=== PATIENT | male | born 1970 | race Caucasian/White ===

== ENCOUNTER 2021-08-10 05:35 | Day surgery (SDC) | payer BC, SELFPAY ==
[~2021-08-10] VITALS: Ht 185.4 cm; Wt 108.9 kg
[2021-08-10] MEDS ORDERED: CEFAZOLIN SOD 1 GM in D5W 50 ML IV ONE (07:00)
[2021-08-10] MEDS ORDERED: ONDANSETRON HCL 4 MG/2 ML VIAL IVP ONE (08:00)
[2021-08-10] MEDS ORDERED: LR 1,000 ML IV.SOLN IV ONE (08:00)
[2021-08-10] MEDS ORDERED: NS IRRIG SOLN 1000 ML IR ONE (08:00)
[2021-08-10] MEDS ORDERED: BUPIVACAINE /PF 0.25% 30 ML VIAL INJ ONE (08:00)
[2021-08-10] MEDS ORDERED: VECURONIUM BROMIDE 10 MG/VIAL (NORCURON) IV ONE (08:00)
[2021-08-10] MEDS ORDERED: ROCURONIUM BROMIDE 10 MG/ML (ZEMURON) IV ONE (08:00)
[2021-08-10] MEDS ORDERED: SUCCINYLCHOLINE CHLORIDE 20 MG/ML(QUELICIN) IVP ONE (08:00)
[2021-08-10] MEDS ORDERED: NS 1000 ML IV.SOLN IV ONE (08:00)
[2021-08-10] MEDS ORDERED: PROPOFOL 200MG/ 20ML VIAL (DIPRIVAN) IV ONE (08:00)
[2021-08-10] MEDS ORDERED: SEVOFLURANE 15 MIN GAS INH ONE (08:00)
[2021-08-10] MEDS ORDERED: MIDAZOLAM HCL 5 MG/5 ML VIAL IVP ONE (08:00)
[2021-08-10] MEDS ORDERED: CEFAZOLIN 2 GM IVPB PREMIX 50 ML IV ONE (08:00)
[2021-08-10] MEDS ORDERED: fentaNYL CITRATE 250 MCG/5 ML AMP IV ONE (08:00)
[2021-08-10] MEDS ORDERED: KETOROLAC TROMETHAMINE 30 MG VIAL IVP PRN (08:45)
[2021-08-10] MEDS ORDERED: ONDANSETRON HCL 4 MG/2 ML VIAL IVP PRN (08:45)
[2021-08-10] MEDS ORDERED: HYDROmorphone 1 MG/ML INJ. CARTRIDGE IVP PRN ×2 (08:45→10:15)
[2021-08-10] MEDS ORDERED: hydrALAZINE HCL 20 MG/ML VIAL IVP PRN (08:45)
[2021-08-10] MEDS ORDERED: IBUPROFEN 800 MG TABLET PO PRN (08:45)
[2021-08-10] MEDS ORDERED: D5/0.45 NS 1,000 ML IV SCH (10:15)
[2021-08-10] MEDS ORDERED: HYDROcodone/ACETAMIN 5-325 MG TAB (NORCO/ VICODIN) PO PRN ×2 (10:15)
[2021-08-10 14:20] VITALS: BP_SYST 137
== END 2021-08-10 13:25 | disposition home or self-care (01) ==
LOC: SMU 05:35 → SDS 05:35 → EDSEX 07:30 → SDS 13:25
PROVIDERS: ATTEND Colon & Rectal Surgery
DX: K80.10 Calculus of gallbladder with chronic cholecystitis without obstruction (principal); K40.30 Unilateral inguinal hernia, with obstruction, without gangrene, not specified as recurrent; F41.9 Anxiety disorder, unspecified; F17.210 Nicotine dependence, cigarettes, uncomplicated; Z79.899 Other long term (current) drug therapy; Z20.822 Contact with and (suspected) exposure to COVID-19
CPT/HCPCS: 36415; 47563; 49507; 74300; 87426; 88304; C1727; C1758; C1781; J0330; J0690 ×2; J2250; J2405; J2704; J3010; J3490 ×2; J7030; J7060; J7120; Q9967; U0003